=== PATIENT | female | born 1960 | race Caucasian/White ===

== ENCOUNTER → 2022-01-29 | Day surgery (SDC) | payer MEDICARE, OTHER ==
[~2022-01-29] VITALS: Ht 167.6 cm; Wt 56.2 kg
[~2022-01-29] MED LIST: AMLODIPINE BES2.5 MG PO; ASPIRIN EC81 M1 PO; CLONAZEPAM 1MG T1 MG PO; CYCLOBENZAPRINE10 MG PO; GABAPENTIN 100100 MG PO; LISINOPRIL20 MG PO; METOPROLOL SUCC25 MG PO; PRAVASTATIN SOD20 MG PO; VITAMIN D350 MCG PO
[2022-01-29 07:44] LABS: HCT 44.5 % (37.0-47.0); HGB 15.6 g/dl (12.5-16.0); MCH 32.2 pg (25.0-31.0); MCHC 35.1 g/dL (32.0-36.0); MCV 91.8 fL (78.0-100.0); MPV 8.2 fL (6.0-9.5); RBC 4.85 M/uL (4.20-5.40); RDW 12.8 % (11.5-14.0); WBC 8.6 K/uL (4.0-10.5)
[2022-01-29 08:16] LABS: ALBUMIN 3.6 g/dL (3.4-5.0); BILIRUBIN - TOTAL 0.5 mg/dL (0.2-1.0); BUN/CREAT RATIO (CALC) 7.8 RATIO; CREATININE 0.64 mg/dL (0.51-0.95); POTASSIUM 3.8 mmol/L (3.5-5.1); TOTAL PROTEIN 6.6 g/dL (6.4-8.2)
== END | disposition home or self-care (01) ==
LOC: FAS 06:59
PROVIDERS: Surgery
DX: Z12.11 Encounter for screening for malignant neoplasm of colon (principal); K57.30 Diverticulosis of large intestine without perforation or abscess without bleeding; Z86.010 Personal history of colon polyps; I10 Essential (primary) hypertension; E78.00 Pure hypercholesterolemia, unspecified; K21.9 Gastro-esophageal reflux disease without esophagitis; E78.5 Hyperlipidemia, unspecified; F17.210 Nicotine dependence, cigarettes, uncomplicated; F41.9 Anxiety disorder, unspecified; Z79.82 Long term (current) use of aspirin; Z79.899 Other long term (current) drug therapy; Z88.8 Allergy status to other drugs, medicaments and biological substances
CPT/HCPCS: 36415; 80053; J2250; J2704; J7120